=== PATIENT | female | born 1980 | race Caucasian/White ===

== ENCOUNTER 2024-12-15 11:56 | Outpatient (CLI) | payer OTHER ==
[2024-12-15 12:50] LABS: ABG PH 7.428 (7.35-7.45); ABG PO2 99.9 mmHg (80-100); BICARBONATE 21.9 mmol/l (23-25); o2 21 %
== END 2024-12-15 12:15 | disposition home or self-care (01) ==
LOC: LAB 11:56
DX: G47.33 Obstructive sleep apnea (adult) (pediatric) (principal); R06.09 Other forms of dyspnea